=== PATIENT | female | born 1990 | race Caucasian/White ===

== ENCOUNTER 2018-03-26 20:50 | Emergency (ER) | payer OTHER ==
[~2018-03-26] VITALS: Ht 160 cm; Wt 86.4 kg
[~2018-03-26 20:50] MED LIST: IBUPROFEN600 MG PO; PERCOCET 5-3251 TAB PO; [UNRECOGNIZED DRUG - OTHER] PO
[2018-03-26 21:10] VITALS: BP 141/92; Ht 160 cm; Wt 86.4 kg
[2018-03-26 22:12] LABS: APPEARANCE CLEAR (CLEAR); BILIRUBIN NEGATIVE (NEGATIVE); COLOR YELLOW (YELLOW); GLUCOSE NEGATIVE (NEGATIVE); KETONE NEGATIVE (NEGATIVE); NITRITE POSITIVE (NEGATIVE); PROTEIN NEGATIVE (NEGATIVE); SPECIFIC GRAVITY 1.025 (1.005-1.020); UROBILINOGEN NORMAL (NORMAL)
[2018-03-26 22:14] LABS: BACTERIA MANY /hpf (NONE SEEN); EPITHELIAL CELLS OCC /hpf (0-5); HCG URINE NEGATIVE (NEGATIVE); RED CELLS - URINE 0-5 /hpf (0-5); WHITE CELLS - URINE 0-5 /hpf (0-5)
[2018-03-26 22:29] LABS: BASOPHILS 0.2 % (0-2); EOSINOPHILS 0.9 % (0-7); HEMATOCRIT 37.9 % (36.0-48.0); IMMATURE GRANULOCYTES 0.3 % (0-5); LYMPHOCYTES 37.2 % (15-50); MCH 29.9 pg (26.0-34.0); MCHC 34.3 g/dL (31.0-37.0); MCV 87.1 fL (80.0-100.0); MEAN PLATELET VOLUME 10.5 fL (7.4-10.4); MONOCYTES 5.3 % (2-11); NEUTROPHILS 56.1 % (40-80); PLATELET COUNT 316 10x3/uL (130-400); RBC 4.35 10x6/uL (4.00-5.40); RDW 12.2 % (11.5-14.5); WBC 11.4 10x3/uL (4.8-10.8)
[2018-03-26 22:37] LABS: INR 1.01 (0.85-1.17); PROTIME 12.9 SECONDS (11.6-15.0)
[2018-03-26 22:39] LABS: D-DIMER-QUANTITATIVE < 0.27 ug/mLFEU (0.20-0.54)
[2018-03-26 22:48] LABS: ALBUMIN 3.6 g/dL (3.4-5.0); ALKALINE PHOSPHATASE 63 U/L (46-116); ALT (SGPT) 74 U/L (10-68); CALC OSMOLALITY 279 mosm/kg (275-300); CALCIUM 8.6 mg/dL (8.5-10.1); CARBON DIOXIDE 31.7 mmol/L (21.0-32.0); CHLORIDE - SERUM 105 mmol/L (98-107); CREATININE - SERUM 0.8 mg/dL (0.6-1.3); GLUCOSE 84 mg/dL (74-106); POTASSIUM - SERUM 3.7 mmol/L (3.5-5.1); PROTEIN - SERUM 6.9 g/dL (6.4-8.2); SODIUM 142 mmol/L (136-145); UREA NITROGEN 7 mg/dL (7-18); eGFR NON AFRICAN AMERICAN 90 mL/min (90-120)
[2018-03-26 22:57] LABS: CKMB 0.6 U/L (0.0-3.6); CREATINE KINASE 87 UL (21-215); TROPONIN-I < 0.017 ng/mL (0.000-0.060)
== END 2018-03-26 23:46 | disposition left against medical advice (07) ==
LOC: D.ER 20:50
PROVIDERS: Family Medicine
DX: N39.0 Urinary tract infection, site not specified (principal); R07.9 Chest pain, unspecified; F17.200 Nicotine dependence, unspecified, uncomplicated

== ENCOUNTER 2019-06-12 17:15 | Emergency (ER) | payer MEDICAID ==
[~2019-06-12] VITALS: Ht 160 cm; Wt 72.7 kg
[2019-06-12 17:53] VITALS: Ht 160 cm; Wt 72.7 kg
[2019-06-12 18:14] LABS: BASOPHILS 0.2 % (0-2); EOSINOPHILS 0.6 % (0-7); HEMATOCRIT 40.8 % (36.0-48.0); HEMOGLOBIN 14.2 g/dL (12-16); IMMATURE GRANULOCYTES 0.2 % (0-5); MCH 30.9 pg (26.0-34.0); MCHC 34.8 g/dL (31.0-37.0); MCV 88.9 fL (80.0-100.0); MEAN PLATELET VOLUME 9.7 fL (7.4-10.4); PLATELET COUNT 301 10x3/uL (130-400); RBC 4.59 10x6/uL (4.00-5.40); RDW 12.5 % (11.5-14.5); WBC 14.3 10x3/uL (4.8-10.8)
[2019-06-12 18:39] LABS: ALBUMIN 3.5 g/dL (3.4-5.0); ALKALINE PHOSPHATASE 64 U/L (46-116); ALT (SGPT) 26 U/L (10-68); BILIRUBIN - TOTAL 0.37 mg/dL (0.2-1.3); CALC OSMOLALITY 279 mosm/kg (275-300); CALCIUM 8.7 mg/dL (8.5-10.1); CHLORIDE - SERUM 103 mmol/L (98-107); CREATININE - SERUM 0.8 mg/dL (0.6-1.3); GLUCOSE 91 mg/dL (74-106); POTASSIUM - SERUM 4.2 mmol/L (3.5-5.1); PROTEIN - SERUM 6.3 g/dL (6.4-8.2); SODIUM 142 mmol/L (136-145); UREA NITROGEN 5 mg/dL (7-18); eGFR NON AFRICAN AMERICAN 89 mL/min (90-120)
[2019-06-12 18:46] LABS: HCG SERUM NEGATIVE (NEGATIVE)
[2019-06-12] MEDS ORDERED: VIBRAMYCIN 100100 MG PO (19:22)
[2019-06-12] MEDS ORDERED: ALBUTEROL SULF8.5 GM INH (19:22)
[2019-06-12] MEDS ORDERED: PROMETHAZINE W473 ML PO (19:23)
[2019-06-12 20:20] VITALS: BP 123/72
== END 2019-06-12 20:12 | disposition home or self-care (01) ==
LOC: D.ER 17:15
PROVIDERS: Family Medicine
DX: R05 Cough (principal)